=== PATIENT | male | born 1995 | race Caucasian/White ===

== ENCOUNTER 2016-10-31 08:53 | Day surgery (SDC) | payer OTHER ==
[~2016-10-31] VITALS: Ht 185.4 cm; Wt 86.2 kg
[~2016-10-31 08:53] MED LIST: Sodium Chloride LOK Flush 10 mL Syringe IV PRN; [UNRECOGNIZED DRUG - CODE] PO; fentaNYL-PF 50 mCg/mL 2 mL Inj IVPUSH PRN
[2016-10-31 09:03] VITALS: BP 121/67; PULSE 65; RESP 14; O2SAT 97
[2016-10-31] MEDS ORDERED: ROB500 PO (09:09)
[2016-10-31] MEDS ORDERED: TORADOL PO (09:09)
[2016-10-31] MEDS: 0.9% Sodium Chloride 1,000 ML IV SCH ×2 (09:23→09:44)
[2016-10-31 09:57] VITALS: BP 133/64; PULSE 70; RESP 16; O2SAT 97
[2016-10-31 10:07] VITALS: BP 115/47; PULSE 60; RESP 16; O2SAT 98
[2016-10-31 10:18] VITALS: BP 149/75; PULSE 76; RESP 16; O2SAT 99
--- NOTE | 2016-10-31 10:21 | ENDO ---
[address] [address] ENDOSCOPY PROCEDURE PATIENT: RICK APONTE : 1995 MR#: [id number] ADMIT: 10/31/2016 JOB ID: [id number] PROCEDURE: Colonoscopy. INDICATIONS: A 20-year-old male with a history of inflammatory bowel disease. He, however, remains in total remission on 100 mg of mercaptopurine daily. Updated colonoscopy is pursued to evaluate for any smoldering disease. EQUIPMENT: [employer]-[id number]. SEDATION: 8 mg Versed and 175 mcg fentanyl. COMPLICATIONS: None identified. BOWEL PREPARATION: Fair, adequate exam. PROCEDURE INFORMATION: After the risks and benefits were explained, written and verbal informed consent was obtained. The patient was brought into the endoscopy suite and placed into the left lateral decubitus position. Sedation was achieved as above. A digital rectal examination accomplished. No significant pathology appreciated. The scope was introduced into the rectum and advanced under direct visualization to the cecum as identified by the appendiceal orifice and ileocecal valve. The scope was slowly withdrawn to carefully examine the mucosa for any defects or lesions. Retroflexed views were avoided in the rectum. Multiple direct views were made through the dentate line for exclusion of pathology. The colon was decompressed, the scope removed from the patient who tolerated the procedure well. FINDINGS: The terminal ileum was interrogated and appeared visually normal. No signs of inflammation. Throughout the colon, there was no evidence of any significant inflammation. No polyps. No mass lesions. The mucosa appeared essentially normal throughout. Multiple photographs were taken for the electronic record. To confirm the normality, we took biopsies from the right colon, left colon and rectum for histopathologic analysis. The patient had a slightly tortuous/challenging navigation through the sigmoid region. ENDOSCOPIC DIAGNOSIS: Visually normal colonoscopy to cecum and terminal ileum. RECOMMENDATIONS: The patient has a desire to see how he does tapering down and potentially off of immuno modulation medication. We will cut the mercaptopurine dose in half. Follow up in the GI Clinic in 3-4 months.
--- NOTE | 2016-11-01 20:09 | PATH ---
SURGICAL PATHOLOGY Attending Physician:Jaz Muhammad CASE STATUS: Signed Out PATIENT NAME: RICK APONTE PID: [id number] : 1995 DATE COLLECTED:10/31/2016 17:33 SPECIMEN: 1: Colon, Biopsy 2: Colon, Biopsy 3: Rectum, Biopsy CLINICAL HISTORY: 1). RIGHT COLON BIOPSY 2). LEFT COLON BIOPSY 3). RECTAL BIOPSY FINAL DIAGNOSIS: 1. Right Colon, Biopsy: Colonic mucosa with rare, minute foci of active inflammation. Negative for granulomas, dysplasia and malignancy. 2. Left Colon, Biopsy: Colonic mucosa with no diagnostic abnormality. Negative for active inflammation, granulomas, dysplasia, and malignancy. 3. Rectal Biopsy: Colorectal mucosa with no diagnostic abnormality. Negative for active inflammation, granulomas, dysplasia, and malignancy. ICD10: K52.9 GROSS DESCRIPTION: The specimen is received in three formalin filled containers labeled with the patient's name. 1). The specimen is sublabeled "right colon" and consists of 2 portions of tissue which aggregate to 0.4 x 0.3 x 0.2 CM. The specimen is entirely submitted in cassette 1A. 2). The specimen is sublabeled "left colon" and consists of 2 portions of tissue which aggregate to 0.2 x 0.2 x 0.2 CM. The specimen is entirely submitted in cassette 2A. 3). The specimen is sublabeled "rectal" and consists of a 0.2 x 0.2 x 0.2 CM portion of tissue which is entirely submitted in cassettes 3A. 10/31/2016 [facility] ICD-9 CODES: CPT CODES: 1: 95178 2: 60607 3: 76014 Electronically Signed Out Madeline Gomez MD [facility] [address], [place] [address] Technical component performed at [facility], [facility] [address], [place], [address]
== END 2016-10-31 23:59 | disposition home or self-care (01) ==
LOC: END 08:53
PROVIDERS: ATTEND Internal Medicine Gastroenterology
DX: K52.89 Other specified noninfective gastroenteritis and colitis (principal)
CPT/HCPCS: 45380; 99153; G0500; J7030